=== PATIENT | female | born 1975 | race Native Hawaiian/Other Pacific Islander ===

== ENCOUNTER 2017-01-16 09:26 | Outpatient (CLI) | payer OTHER | END 2017-01-16 10:26 | disposition home or self-care (01) | LOC: MAMMO 09:26 | DX: N63 Unspecified lump in breast (principal) | CPT/HCPCS: G0204-TC ==

== ENCOUNTER 2017-01-23 09:27 | Outpatient (CLI) | payer OTHER | END 2017-01-23 19:18 | disposition home or self-care (01) | LOC: US 09:27 | DX: N63 Unspecified lump in breast (principal) ==

== ENCOUNTER 2019-03-18 16:42 | Emergency (ER) | payer OTHER ==
[~2019-03-18] VITALS: Ht 157.5 cm; Wt 90.7 kg
[2019-03-18 17:47] LABS: POTASSIUM 3.8 mmol/L (3.6-5.2); SODIUM 141 mmol/L (136-145)
[2019-03-18 17:52] LABS: PLATELET COUNT 246 K/uL (152-353)
[2019-03-18 20:02] VITALS: BP 111/52; TEMP 97.6
== END 2019-03-18 20:04 | disposition home or self-care (01) ==
LOC: ED 16:42
PROVIDERS: Family Medicine
DX: R07.89 Other chest pain (principal); K21.9 Gastro-esophageal reflux disease without esophagitis; F41.8 Other specified anxiety disorders
CPT/HCPCS: 36415; 80053; 81000; 82550; 84484; 85027; 93005; 99283